=== PATIENT | male | born 1990 | race Caucasian/White ===

== ENCOUNTER 2019-02-13 20:20 | Emergency (ER) | payer MEDICAID ==
[~2019-02-13] VITALS: Ht 175.3 cm; Wt 99.8 kg
--- NOTE | 2019-02-13 20:27 | NUR ---
Dr. Horne at bedside for MSE.
[2019-02-13] MEDS ORDERED: BUPR1FIL3 SL (20:30)
[2019-02-13] MEDS ORDERED: TRAZ-182 PO (20:30)
--- NOTE | 2019-02-13 20:39 | NUR ---
Patient discharged to home in stable conditon. Written and verbal after care instructions given. Patient verbalizes understanding of instructions. Pt ambulated out of ER with steady gait, no acute signs of distress, VSS, all belongings taken.
[2019-02-13 20:40] VITALS: BP 118/79
== END 2019-02-13 20:41 | disposition home or self-care (01) ==
LOC: ER 20:22
DX: S09.90XA Unspecified injury of head, initial encounter (principal); F17.290 Nicotine dependence, other tobacco product, uncomplicated; Z79.899 Other long term (current) drug therapy; X58.XXXA Exposure to other specified factors, initial encounter; Y93.89 Activity, other specified; Y92.89 Other specified places as the place of occurrence of the external cause; Y99.8 Other external cause status
CPT/HCPCS: A4663